=== PATIENT | male | born 1990 | race Caucasian/White ===

== ENCOUNTER 2016-12-02 00:15 | Emergency (ER) | payer OTHER ==
[2016-12-02 01:20] LABS: BASO % 0.4 % (0.2-1.2); EOS # 0.7 10_X3_uL (0.0-0.5); EOS % 6.8 % (0.8-7.0); GRAN # 4.5 10_X3_uL (1.8-5.4); HEMATOCRIT 42.1 % (40-51); HEMOGLOBIN 14.6 g/dL (13.7-17.5); LYMPH # 3.8 10_X3_uL (1.3-3.6); LYMPH % 38.1 % (21.8-53.1); MEAN CORPUSCULAR HEMOGLOBIN 30.2 pg (27.0-33.0); MEAN CORPUSCULAR HGB CONC 34.7 g/dL (32.0-36.0); MEAN PLATELET VOLUME 9.6 fl (7.5-11.5); MONO # 0.9 10_X3_uL (0.3-0.8); MONO % 8.7 % (5.3-12.2); PLATELET COUNT 237 x10_3/uL (163-337); RED BLOOD COUNT 4.84 x10_6/uL (4.6-6.1); RED CELL DISTRIBUTION WIDTH 13.2 % (11.6-14.4); WHITE BLOOD COUNT 9.8 x10_3/uL (4.2-9.1)
[2016-12-02 01:33] LABS: BLOOD UREA NITROGEN 12 mg/dL (7-18); CARBON DIOXIDE 22 mmol/L (21-32); CREATININE 0.8 mg/dL (0.6-1.3); GLUCOSE,RANDOM 129 mg/dL (70-99); POTASSIUM 3.4 mmol/L (3.5-5.1); SODIUM 141 mmol/L (136-145)
[2016-12-02 01:34] LABS: TROP-I < 0.30 NG/ML (0.00-0.30)
[2016-12-02 01:43] LABS: THYROID STIMULATING HORMONE 3.16 uIU/mL (0.34-4.82)
== END 2016-12-02 03:00 | disposition home or self-care (01) ==
LOC: ER 00:15
PROVIDERS: General Practice
DX: R00.2 Palpitations (principal); F41.9 Anxiety disorder, unspecified; I10 Essential (primary) hypertension; R00.0 Tachycardia, unspecified; R20.0 Anesthesia of skin; F17.210 Nicotine dependence, cigarettes, uncomplicated; F11.21 Opioid dependence, in remission
CPT/HCPCS: 36415; 71010; 80048; 80307; 84443; 85025; 93005; 99285-25